=== PATIENT | male | born 1955 | race Asian ===

== ENCOUNTER 2020-11-02 11:29 | Outpatient (CLI) | payer OTHER ==
[2020-11-02 12:56] LABS: POTASSIUM 4.5 mmol/L (3.6-5.2)
[2020-11-02 13:01] LABS: PLATELET COUNT 319 K/uL (142-355)
== END 2020-11-02 19:04 | disposition home or self-care (01) ==
LOC: LABW 11:29
PROVIDERS: ATTEND Internal Medicine Nephrology
DX: I12.9 Hypertensive chronic kidney disease with stage 1 through stage 4 chronic kidney disease, or unspecified chronic kidney disease (principal); N18.32 Chronic kidney disease, stage 3b; E78.2 Mixed hyperlipidemia; E11.59 Type 2 diabetes mellitus with other circulatory complications
CPT/HCPCS: 36415; 80053; 81000; 82043; 82306; 82570; 82728; 82784; 83516; 83540; 83550; 83735; 83970; 84100; 84155; 84165; 84550; 85027; 85044; 86038; 86060; 86160; 86162; 86225; 86255; 86335; 86592